=== PATIENT | male | born 1965 ===

== ENCOUNTER 2019-08-19 11:13 | Emergency (ER) | payer OTHER, SELFPAY ==
[2019-08-19] VITALS (7 sets, daily range): BP systolic 119–149; BP diastolic 74–91; PULSE 55–70; RESP 11–16; TEMP 36.8; O2SAT 96–99
--- NOTE | 2019-08-19 | DI.RAD.S_ITS ---
PROCEDURE: XR FOREARM RT 2V INDICATIONS: TRAUMA TECHNIQUE: 2 views of the forearm were acquired. COMPARISON: None. FINDINGS: Bones: No fractures or dislocations. No suspicious bony lesions. Partial visualization of surgical screws and plate in the distal humerus. Soft tissues: No suspicious soft tissue calcifications or masses. Metallic artifacts are noted in right hand are suspicious for shrapnel. IMPRESSION: No acute osseous injuries identified in the right forearm. Dictated by: Rolando Palmer M.D. on 08/19/2019 at 12:17 Approved by: Rolando Palmer M.D. on 08/19/2019 at 12:19
--- NOTE | 2019-08-19 | DI.RAD.S_ITS ---
PROCEDURE: XR KNEE RT 1TO2V INDICATIONS: TRAUMA TECHNIQUE: 2 views of the knee were acquired. COMPARISON: None. FINDINGS: Bones: No fractures or dislocations. No suspicious bony lesions. Soft tissues: No joint effusion. No suspicious soft tissue calcifications. IMPRESSION: No acute osseous injuries. Dictated by: Rolando Palmer M.D. on 08/19/2019 at 12:21 Approved by: Rolando Palmer M.D. on 08/19/2019 at 12:22
--- NOTE | 2019-08-19 11:23 | DI.CT.S_ITS ---
PROCEDURE: CT FACIAL BONES WO CON INDICATIONS: trauma, hit in face by forklift, pain and swelling of L face TECHNIQUE: Noncontrast 2.5 mm thick axial images acquired from the mandible through the frontal sinuses, with coronal and sagittal reformatting. For radiation dose reduction, the following was used: automated exposure control, adjustment of mA and/or kV according to patient size. COMPARISON: None. FINDINGS: Image quality: Diagnostic. Bones and teeth: There is slight deformity identified involving the lamina papyracea on the left (image 63, series 6) without associated edema or displaced fracture evident. This likely is on a chronic basis. Otherwise, the orbital camilo are intact. Sinus camilo show no fracture or deformity. Nasal bones and septum are intact. Visualized portions of the mandible demonstrate no fractures or subluxation. Zygomatic arches are intact. Pterygoid plates are intact. Visualized portions of the skull base and auditory canals are intact. Injuries of multiple teeth may be present involving the anterior maxillary teeth (incisors). Sinuses: Paranasal sinuses are aerated, without fluid levels, mucosal thickening, or mucoceles. Mastoid air cells are aerated. Soft tissues: No edema, masses, or fluid collections. No enlarged lymph nodes. No soft tissue lacerations or debris. Vascular: Visualized vascular structures appear normal in the absence of contrast. Bony vascular foramina and canals are intact. IMPRESSION: 1. Possible acute fracture involving the anterior nasal spine of the maxilla and probable anterior midline maxillary incisors. Please correlate clinically. 2. Old injury of the left lamina appreciative. Dictated by: Rocky Liu M.D. on 08/19/2019 at 11:02 Approved by: Rocky Liu M.D. on 08/19/2019 at 11:09
--- NOTE | 2019-08-19 11:24 | DI.RAD.S_ITS ---
PROCEDURE: XR PELVIS 1-2V INDICATIONS: trauma TECHNIQUE: 1 view(s) of the pelvis acquired. COMPARISON: None. FINDINGS: Bones: No fractures or dislocations. No suspicious bony lesions. Soft tissues: Visualized bowel gas pattern is normal. No suspicious soft tissue calcifications. IMPRESSION: No fracture or dislocation. Dictated by: Rolando Palmer M.D. on 08/19/2019 at 12:17 Approved by: Rolando Palmer M.D. on 08/19/2019 at 12:17
--- NOTE | 2019-08-19 11:24 | DI.RAD.S_ITS ---
PROCEDURE: XR CHEST 1V INDICATIONS: trauma TECHNIQUE: One view of the chest was acquired. COMPARISON: None. FINDINGS: Surgical changes and devices: None. Lungs and pleura: Lungs are clear. No pleural effusions or pneumothorax. Mediastinum: Mediastinal contours appear normal. Heart size is normal. Bones and chest wall: No suspicious bony lesions. Overlying soft tissues appear unremarkable. IMPRESSION: No acute cardiopulmonary disease. Dictated by: Rolando Plamer M.D. on 08/19/2019 at 12:17 Approved by: Rolando Palmer M.D. on 08/19/2019 at 12:17
--- NOTE | 2019-08-19 11:25 | ED.TRAUMA ---
HPI - Trauma General Chief Complaint: Trauma Stated Complaint: hit in face with forklift Time Seen by Provider: 08/19/19 11:23 Source: patient Mode of arrival: Ambulatory Limitations: no limitations History of Present Illness HPI narrative: 54-year-old male, nonsmoker with hyperlipidemia presents with a chief complaint of head and face injury suffered while at work. He is activated as a modified trauma due to nursing suspicion based on mechanism. The patient was working on replacing the fork of a forklift when it became detached and fell to the ground, taking him with it, it then bounced off the ground and hit him in the face and he suffered a likely brief loss of consciousness. He denies blurred vision or trouble with speech, his chief complaint is of left-sided facial pain and numbness. He states he had a few teeth knocked out and feels at least 1 other which is loose. He denies any obvious neck pain. He has no chest pain or shortness of breath. He has no difficulty with breathing or abdominal pain. He has no numbness, tingling or weakness of his lower extremities. He does have some pain in his left forearm and a small abrasion. His tetanus is not current. He denies the use of blood thinners, alcohol or street drugs MD complaint: injury and pain Onset (ago): minute(s) Loss of Consciousness: yes Location: head, face and mouth Severity: moderate Context: other Related Data Previous Rx's Medication Instructions Recorded amoxicillin-pot clavulanate 1 tab PO BID #20 tab 08/19/19 [Augmentin] hydrocodone-acetaminophen 1 tab PO Q4H PRN #20 tab 08/19/19 ondansetron 4 mg PO TID-QID PRN #10 tab 08/19/19 Allergies Allergy/AdvReac Type Severity Reaction Status Date / Time No Known Drug Allergies Allergy Verified 08/19/19 13:38 Review of Systems Constitutional Constitutional: Denies chills, Denies fatigue, Denies fever(s), Denies frequent falls, Denies lethargy and Denies weakness Eyes Eyes: Denies change in vision, Denies eye discharge, Denies irritation and Denies loss of vision ENT Ears, Nose, Mouth, and Throat: Denies change in voice, Denies dizziness, Reports mouth pain, Denies neck pain, Denies sore throat and Denies throat swelling Cardiovascular Cardiovascular: Denies chest pain, Denies irregular heart rhythm, Denies lightheadedness, Denies palpitations, Denies dyspnea, Denies dyspnea on exertion and Denies orthopnea Respiratory Respiratory: Denies cough, Denies dyspnea, Denies dyspnea on exertion and Denies wheezing Gastrointestinal Gastrointestinal: Denies abdominal pain, Denies change in bowel habits, Denies diarrhea, Denies nausea and Denies vomiting Genitourinary Genitourinary: Denies hematuria, Denies flank pain, Denies urinary incontinence and Denies urinary urgency Musculoskeletal Musculoskeletal: Denies back pain, Denies muscle weakness, Denies neck pain, Denies numbness and Denies tingling Integumentary/Breasts Skin/Breast: Denies pruritus, Denies erythema, Denies rash and Denies wounds Neurologic Neurologic: Denies behavioral changes, Denies confusion, Denies dizziness, Denies frequent falls, Denies loss of vision, Denies numbness, Denies tingling and Denies weakness Psychiatric Psychiatric: Denies anxiety, Denies behavioral changes, Denies confusion, Denies depression, Denies homicidal ideation and Denies suicidal ideation Endocrine Endocrine: Denies fatigue, Denies flushing and Denies palpitations Hematologic/Lymphatic Hematologic/Lymphatic: Denies easy bruising Allergic/Immunologic Allergic/Immunologic: Denies urticaria, Denies throat swelling and Denies wheezing Exam Narrative Exam Narrative: GENERAL: [54] year old patient appears stated age. Well-nourished, well-developed patient, in mild distress. Obviously a bit shaken up, GCS 15 HEAD: Atraumatic. Normocephalic. EYES: Pupils equal round and reactive. Extraocular motions intact. No scleral icterus. No injection or drainage. ENT: No nasal septal hematoma tenderness over the bridge of the nose Nose without bleeding, purulent drainage. Throat without erythema, tonsillar hypertrophy or exudate. Airway patent.Tooth #9 and 10 are absent, small amount of bleeding noted. Gumline tender to palp. NECK: Trachea midline. Non tender CARDIOVASCULAR: Regular rate and rhythm without murmurs, gallops, or rubs. RESPIRATORY: Clear to auscultation. Breath sounds equal bilaterally. No wheezes, rales, or rhonchi. GASTROINTESTINAL: Abdomen soft, non-tender, nondistended. EXTREMITIES: Abrasion to midshaft left forearm ulnar surface No edema or joint tenderness. BACK: Nontender without deformity or crepitance. No flank tenderness. NEURO: AOx3. SKIN: No rash or erythema of visible areas Initial Vital Signs Initial Vital Signs: Vital Signs Temperature 98.2 F 08/19/19 11:13 Pulse Rate 70 08/19/19 11:13 Respiratory Rate 14 08/19/19 11:13 Blood Pressure 149/77 H 08/19/19 11:13 Pulse Oximetry 99 08/19/19 11:13 Course Course Course Narrative: Discussion with Dr. Rodarte (oral maxillofacial surgeon, regarding dental injuries. No specific therapeutic intervention other than antibiotics and pain control with follow-up precautions Orders Ordered: ED Orders 08/19/19 12:07 Complete Blood Count AUTO DIFF Stat Comprehensive Metabolic Panel Stat Ethanol (ETOH) Stat Lipase Stat Type and Screen Stat 08/19/19 12:30 EKG-12 Lead Stat Discontinued Medications Diphtheria/Tetanus/Acell Pertussis (Adacel) 0.5 ml IM .ONCE ONE Stop: 08/19/19 13:33 Last Admin: 08/19/19 13:39 Dose: 0.5 ml Documented by: DARIEL Hydromorphone HCl (Dilaudid) 0.5 mg IV NOW ONE Stop: 08/19/19 13:24 Last Admin: 08/19/19 13:39 Dose: 0.5 mg Documented by: DARIEL Sodium Chloride (Normal Saline 0.9%) 1,000 mls @ 150 mls/hr IV CONT EZEKIEL Last Infusion: 08/19/19 14:20 Dose: 0 mls/hr Documented by: Admin: 08/19/19 12:22 Dose: 150 mls/hr Documented by: DARIEL Ketorolac Tromethamine (Toradol) 15 mg IV NOW ONE Stop: 08/19/19 13:24 Last Admin: 08/19/19 13:38 Dose: 15 mg Documented by: DARIEL Vital Signs Vital signs: Vital Signs - 8 hr 08/19/19 12:55 08/19/19 13:00 08/19/19 13:30 Pulse Rate 55 L 64 57 L Respiratory Rate 16 15 13 Blood Pressure Blood Pressure [Right Arm] 126/79 126/79 127/91 H Pulse Oximetry 96 98 97 08/19/19 14:20 Pulse Rate 59 L Respiratory Rate 16 Blood Pressure 129/74 Blood Pressure [Right Arm] Pulse Oximetry 96 MDM - Trauma Lab Data Result diagrams: 08/19/19 12:07 08/19/19 12:07 Labs: Lab Results 08/19/19 08/19/19 08/19/19 Range/Units 12:07 12:07 12:07 WBC 5.0 (4.5-11.0) X10^3/uL RBC 4.55 (4.5-5.9) X10^6/uL Hgb 14.9 (13.5-17.5) g/dL Hct 42.3 (41-53) % MCV 93.0 (80-100) fL MCH 32.8 (26-34) PG MCHC 35.2 (30-36) % RDW 12.6 (11.6-14.8) % Plt Count 214 (150-400) X10^3/uL Neut % (Auto) 72.6 (50-75) % Lymph % (Auto) 19.3 L (25-40) % [place] % (Auto) 6.1 (3-14) % Eos % (Auto) 1.7 L (2-4) % Baso % (Auto) 0.3 (0-2) % Neut # (Auto) 3600 (9688-6232) /uL Lymph # (Auto) 1000 L (7054-1664) /uL [place] # (Auto) 300 (0-900) /uL Eos # (Auto) 100 (0-450) /uL Baso # (Auto) 0 (0-100) /uL Sodium 140 (137-145) mmol/L Potassium 3.9 (3.4-5.1) mmol/L Chloride 104 (98-107) mmol/L Carbon Dioxide 26 (22-32) mmol/L BUN 23 H (9-20) mg/dL Creatinine 0.90 (0.66-1.25) mg/dL Estimated GFR > 60.0 (>60) mL/min BUN/Creatinine Ratio 25.6 H (6-22) Glucose 103 H (70-100) mg/dL Calcium 9.5 (8.4-10.2) mg/dL Total Bilirubin 0.9 (0.2-1.3) mg/dL AST 29 (17-59) IU/L ALT 26 (21-72) IU/L Alkaline Phosphatase 56 (38-126) U/L Total Protein 7.6 (6.3-8.2) g/dL Albumin 4.7 (3.5-5.0) g/dL Globulin 2.9 (1.7-4.1) g/dL Albumin/Globulin Ratio 1.6 (1.0-2.8) Lipase 183 (23-300) U/L Ethyl Alcohol < 10 ( - 10) mg/dL Blood Type B Positive Antibody Screen Negative Point of Care Testing Glucose POC 92 Imaging Data Head / Cervical / Facial Bones CT: Radiologist's impression: [place] [address] CT Scan Report Signed Patient: Maxim Galindo RMR#: [id number] : 1965Acct:[id number] Age/Sex: 54 / MDate of Service: 08/19/19 Loc: ED Accession Number: [id number] Procedure: CT head/brain wo con Ordering Provider: Venkatesh Florian D.O. PROCEDURE: CT HEAD/BRAIN WO CON INDICATIONS: trauma, hit in head/face by forklift TECHNIQUE: Noncontrast 4.5 mm thick angled axial sections acquired from the foramen magnum to the vertex, with coronal and sagittal reformats. For radiation dose reduction, the following was used: automated exposure control, adjustment of mA and/or kV according to patient size. COMPARISON: [facility], CT, CT FACIAL BONES WO CON, 08/19/2019, 11:29. FINDINGS: Image quality: Diagnostic. CSF spaces: Basal cisterns are patent. No extra-axial fluid collections. Ventricles are normal in size and shape. Brain: No midline shift. No intracranial masses or hemorrhage. Ovalle-white matter interface is normal. Skull and face: Calvarium and visualized facial bones are intact, without suspicious lesions. Sinuses: Visualized sinuses and mastoids are clear. IMPRESSION: Negative head CT. No acute intracranial hemorrhage. Dictated by: Rocky Liu M.D. on 08/19/2019 at 10:59 Approved by: Rocky Liu M.D. on 08/19/2019 at 11:[address] [address] [address] Scan Report Signed Patient: Maxim Galindo RMR#: [id number] : 1965Acct:[id number] Age/Sex: 54 / MDate of Service: 08/19/19 Loc: ED Accession Number: [id number] Procedure: CT cervical spine wo con Ordering Provider: Venkatesh Florian D.O. PROCEDURE: CT CERVICAL SPINE WO CON INDICATIONS: trauma, hit in head/face by forklift TECHNIQUE: Noncontrast 3 mm thick sections acquired from the skull base to the T4 level. Sagittal and coronal reformats were then constructed. For radiation dose reduction, the following was used: automated exposure control, adjustment of mA and/or kV according to patient size. COMPARISON: None. FINDINGS: Image quality: Diagnostic. Bones: The craniocervical and atlantoaxial joints are well-maintained. The odontoid is intact. The vertebral body heights and prevertebral soft tissues are within normal limits throughout the cervical spine without evidence to suggest acute compression fracture. No other fractures are evident within the cervical spine. The bone mineralization is within normal limits. Mild degenerative changes of the lower cervical spine are present with areas of disc height loss and disc osteophyte complexes. Soft tissues: No prevertebral soft tissue swelling. The imaged lung apices are clear. Imaged portions of the mediastinum are unremarkable. Otherwise, the remainder of the imaged soft tissues of the neck are within normal limits. IMPRESSION: 1. No acute fracture the cervical spine. 2. Mild degenerative changes of the cervical spine. Dictated by: Rocky Liu M.D. on 08/19/2019 at 11:09 Approved by: Rocky Liu M.D. on 08/19/2019 at 11:10 [place] [address] CT Scan Report Signed Patient: Maxim Galindo R#: [id number] : 1965Acct:[id number] Age/Sex: 54 / MDate of Service: 08/19/19 Loc: ED Accession Number: [id number] Procedure: CT facial bones wo con Ordering Provider: Venkatesh Florian D.O. PROCEDURE: CT FACIAL BONES WO CON INDICATIONS: trauma, hit in face by forklift, pain and swelling of L face TECHNIQUE: Noncontrast 2.5 mm thick axial images acquired from the mandible through the frontal sinuses, with coronal and sagittal reformatting. For radiation dose reduction, the following was used: automated exposure control, adjustment of mA and/or kV according to patient size. COMPARISON: None. FINDINGS: Image quality: Diagnostic. Bones and teeth: There is slight deformity identified involving the lamina papyracea on the left (image 63, series 6) without associated edema or displaced fracture evident. This likely is on a chronic basis. Otherwise, the orbital camilo are intact. Sinus camilo show no fracture or deformity. Nasal bones and septum are intact. Visualized portions of the mandible demonstrate no fractures or subluxation. Zygomatic arches are intact. Pterygoid plates are intact. Visualized portions of the skull base and auditory canals are intact. Injuries of multiple teeth may be present involving the anterior maxillary teeth (incisors). Sinuses: Paranasal sinuses are aerated, without fluid levels, mucosal thickening, or mucoceles. Mastoid air cells are aerated. Soft tissues: No edema, masses, or fluid collections. No enlarged lymph nodes. No soft tissue lacerations or debris. Vascular: Visualized vascular structures appear normal in the absence of contrast. Bony vascular foramina and canals are intact. IMPRESSION: 1. Possible acute fracture involving the anterior nasal spine of the maxilla and probable anterior midline maxillary incisors. Please correlate clinically. 2. Old injury of the left lamina appreciative. Dictated by: Rocky Liu M.D. on 08/19/2019 at 11:02 Approved by: Rocky Liu M.D. on 08/19/2019 at 11:09 Discharge Plan Departure Patient Disposition: Home Clinical Impression: Closed fracture nasal bone Qualifiers: Encounter type: initial encounter Qualified Code(s): S02.2XXA - Fracture of nasal bones, initial encounter for closed fracture Dental injury Qualifiers: Encounter type: initial encounter Qualified Code(s): S09.93XA - Unspecified injury of face, initial encounter Discharge Date/Time: 08/19/19 14:05 Instructions: DI for Trauma Activity Restrictions/Additional Instructions: *You have been diagnosed with [head and facial trauma resulting in small nasal bone fracture and dental fracture.] *What to do: *Take medications as directed *Follow up with your dentist as soon as possible, call for an appointment. Let them know you were seen in the Emergency Department and that we ask that you be seen in follow up *Return to ER if you should have any new, worsening or concerning symptoms Prescriptions: New ondansetron 4 mg tablet,disintegrating 4 mg PO TID-QID PRN (Reason: nausea and vomiting) Qty: 10 RF: 0 amoxicillin-pot clavulanate [Augmentin] 875-125 mg tablet 1 tab PO BID Qty: 20 RF: 0 hydrocodone-acetaminophen 5-325 mg tablet 1 tab PO Q4H PRN (Reason: pain) Qty: 20 RF: 0 Referrals: Jez Rodarte DMD [Physician] -
[2019-08-19 12:16] LABS: Add Manual Diff / Slide Review NO; Basophils Absolute Auto 0 /uL (0-100); Basophils Percent Auto 0.3 % (0-2); Eosinophils Absolute Auto 100 /uL (0-450); Eosinophils Percent Auto 1.7 % (2-4); Hematocrit 42.3 % (41-53); Hemoglobin 14.9 g/dL (13.5-17.5); Lymphocytes Absolute Auto 1000 /uL (1100-4500); Lymphocytes Percent Auto 19.3 % (25-40); Mean Corpuscular HGB Conc 35.2 % (30-36); Mean Corpuscular Hemoglobin 32.8 PG (26-34); Monocytes Absolute Auto 300 /uL (0-900); Monocytes Percent Auto 6.1 % (3-14); Neutrophils Absolute Auto 3600 /uL (1500-7000); Neutrophils Percent Auto 72.6 % (50-75); Platelet Count 214 X10^3/uL (150-400); Red Blood Cell Count 4.55 X10^6/uL (4.5-5.9); Red Cell Distribution Width 12.6 % (11.6-14.8)
[2019-08-19] MEDS: SODIUM CHLORIDE 0.9% 1,000 ML 150 ML IV (12:22)
[2019-08-19 12:38] LABS: Alanine Aminotransferase 26 IU/L (21-72); Albumin 4.7 g/dL (3.5-5.0); Albumin Globulin Ratio 1.6 (1.0-2.8); Alkaline Phosphatase 56 U/L (38-126); Aspartate Aminotransferase 29 IU/L (17-59); BUN Creatinine Ratio 25.6 (6-22); Bilirubin Total 0.9 mg/dL (0.2-1.3); Blood Urea Nitrogen 23 mg/dL (9-20); Calcium 9.5 mg/dL (8.4-10.2); Carbon Dioxide 26 mmol/L (22-32); Chloride 104 mmol/L (98-107); Estimated Glomerular Filt Rate > 60.0 mL/min (>60); Ethanol (ETOH) < 10 mg/dL; Globulin 2.9 g/dL (1.7-4.1); Glucose 103 mg/dL (70-100); HEMOLYSIS < 15 (0-50); Lipase 183 U/L (23-300); Potassium 3.9 mmol/L (3.4-5.1); Sodium 140 mmol/L (137-145); Total Protein 7.6 g/dL (6.3-8.2)
[2019-08-19] MEDS: KETOROLAC 60 MG/2 ML VIAL 15 MG IV (13:38)
[2019-08-19] MEDS: HYDROMORPHONE 0.5 MG INJ IV (13:39)
[2019-08-19] MEDS: TET,DIPH,PERTUSS(ACELL),VAC/PF 0.5 ML SYRINGE IM (13:39)
== END 2019-08-19 14:05 | disposition home or self-care (01) ==
PROVIDERS: Emergency Provider Emergency Medicine
DX: S02.2XXA Fracture of nasal bones, initial encounter for closed fracture (principal); S09.93XA Unspecified injury of face, initial encounter; V83.5XXA Driver of special industrial vehicle injured in nontraffic accident, initial encounter; Y99.0 Civilian activity done for income or pay; Z23 Encounter for immunization
CPT/HCPCS: 36415; 36591; 70450; 70486; 71045; 72125; 72170; 73090; 73560; 80053; 80320; 82962; 83690; 85025; 86850; 86900; 86901; 90471; 93005; 93010; 96361; 96374; 96375; 99284; 99285; 90715; J1170; J1885